=== PATIENT | male | born 2000 | race Caucasian/White ===

== ENCOUNTER 2024-01-07 01:11 | Emergency (ER) | payer OTHER, SELFPAY ==
[2024-01-07 01:13] VITALS: BP 155/96
[2024-01-07 01:28] VITALS: BMI 29.7
--- NOTE | 2024-01-07 02:06 | ED.GENMED ---
History of Present Illness
General
Chief Complaint: Anal/Rectal Problem
Source: patient and family (Mother who is present at the bedside)
Exam Limitations: none
Time Seen by Provider: 01/07/24 01:33
History of Present Illness
History of Present Illness:
23-year-old male presents with pain from a pilonidal cyst. Patient just returned from a 3-hour flight and was uncomfortable during the trip. He has had this cyst for years and has had it drained once. He is insulin-dependent diabetic. States
that his blood sugars have been good. Denies fever, chills, nausea or vomiting.
Past History
Past History
ED Past Medical History: IDDM and Other (Pilonidal cyst)
Social History
Tobacco: Non-smoker
Alcohol: None
Drug: None
Personal: Single
Review of Systems
Review of Systems
Allergies reviewed?: Yes
Other source history: family
All Other Systems: ROS reviewed and negative except as documented in HPI and ROS
Constitutional: Denies fever
EENT: Reports no symptoms
Respiratory: Reports no symptoms
Cardiac: Reports no symptoms
ABD/GI: Reports no symptoms
: Reports no symptoms
Musculoskeletal: Reports no symptoms
Skin: Reports other (Pilonidal cyst Left buttocks)
Neurological: Reports no symptoms
Endocrine: Reports no symptoms
Hematologic/Lymphatic: Reports no symptoms
Psychiatric: Reports anxiety
Phy Exam
General Physical Exam
General Presentation: well appearing and moderate distress
General age: appears stated age
General Skin: warm and dry
General Habitus: normal
General Mental: alert
General Hydration: appears well hydrated
ENT Exam
ENT Exam: EOMI, pharynx normal, neck supple and normocephalic
Eye Exam
Eye Exam: PERRL, cornea clear and conjunctiva normal
Cardiovascular Exam
Cardiovascular Exam: regular rate/rhythm, no edema, no murmur and normal peripheral pulses
Pulmonary Exam
Pulmonary Exam: lungs clear, no respiratory distress, no rales, no crackles, no rhonchi, no stridor, no wheezing and no cough
Gastrointestinal Exam
Gastrointestinal Exam: normal bowel sounds, non tender, soft, no organomegaly, no pulsatile mass and non distended
Neurological Exam
Neurological Exam: alert, oriented x3, no motor deficits and speech normal
Musculoskeletal Exam
Musculoskeletal Exam: full ROM and no edema
Skin Exam
Skin Exam: normal color, warm/dry, no rash, no petechia and other (Pilonidal cyst on the left buttock. No evidence of erythema Or cellulitis)
Psychiatric Exam
Psychiatric Exam: normal mood/affect
Course
Orders/Labs/Results
Orders:
Orders
01/07/24 02:06
HYDROmorphone [Dilaudid] 1 mg IV NOW STA
Ondansetron Injectable [Zofran] 4 mg IV NOW STA
01/07/24 03:46
HYDROmorphone [Dilaudid] 0.5 mg .ROUTE .STK-MED ONE
HYDROmorphone [Dilaudid] 0.5 mg .ROUTE .STK-MED ONE
01/07/24 03:49
HYDROmorphone [Dilaudid] 0.5 mg IV NOW STA
01/07/24 03:54
Clindamycin HCl [Cleocin] 450 mg PO NOW STA
Vital Signs
Initial and Last Documented VS:
Initial Vital Signs
Temp Pulse Resp BP Pulse Ox
98.2 F 70 18 155/96 98
01/07/24 01:13 01/07/24 01:13 01/07/24 01:13 01/07/24 01:13 01/07/24 01:13
Last Documented Vital Signs
Temp Pulse Resp BP Pulse Ox
98.2 F 98 20 130/72 98
01/07/24 01:13 01/07/24 05:25 01/07/24 05:25 01/07/24 04:11 01/07/24 05:48
Procedures
Incision/Drainage/Joint Aspiration
Buttock:
Anethesia: 1% Lidocaine and 1% Lidocaine with Epi
Preparation: cleaned with Hibiclens
Type of procedure: incise, drain and aspiration
Nature of site: abscess
Description of abscess: less than 3cm
Loculations broken up: Yes
How much fluid was obtained?: scant amount
Fluid description: purulent, blood tinged and bloody
Treatment: left open for drainage
*Critical Care Note
Total Time (30-74mins, 75-104mins- exclusive of procedures): Not Applicable
Update Note
Update Note:
01/07/2024 0206 AM: 1% lidocaine with epinephrine injected around the cyst. Patient was in extreme pain. Pain medication ordered
01/07/2024 0246 AM: Back in to see patient. He states that the numbing medicine is working.
01/07/2024 0357 AM: Procedure note: I&D of pilonidal cyst. Verbal consent given by patient with mom present in the room. Appropriate procedures to clean the wound were taken. 1% lidocaine with epinephrine was injected into the wound. 5 cc. When
appropriate analgesia and anesthesia was established, a #11 blade was used to make a small incision approximate 1 cm in length. The wound was then probed with forceps. Cotton tip applicator was also used. No purulent discharge was found.
Ultrasound was used and a small collection of fluid was located right under the incision. Using ultrasound guidance, a scant amount of fluid was expressed. Needle aspiration was attempted with no further success. Patient tolerated procedure well.
No immediate adverse effects.
01/07/2024 0517 AM: Patient resting comfortably. Minimal acute distress at this time. Discussed return to ER instructions with patient and mom. Patient will follow-up with general surgery. Will take antibiotics and pain medicine as needed. Will
continue to closely monitor blood sugar.
ED Attending Note
-
Portions of this chart may have been created with voice recognition software.� Occasional wrong word or��sound alike� substitutions may have occurred due to the inherent limitations of voice recognition software.
Discharge Plan
Departure
Patient Disposition: Home (Routine Discharge)
Date of Disposition: 01/07/24
Time of Disposition: 05:17
Patient with high blood pressure during this ER visit?: Yes
Discharge Problem:
Pilonidal cyst
Instructions: Anal Abscess and Fistula, Adult (DC), How to Do a Sitz Bath, BLOOD PRESSURE
Prescriptions:
New
oxycodone-acetaminophen [Percocet] 5-325 mg tablet
1 tab PO Q6HPRN PRN (Reason: pain) Qty: 10 0RF
clindamycin HCl 150 mg capsule
450 mg PO QID 10 Days Qty: 120 0RF
No Action
insulin aspart U-100 [Novolog U-100 Insulin aspart] 1,000 UNITS/10 ML solution
1.2 units SC MUST ENTER DOSE MDD insulin pump
Patient Comments:
insulin pump
Referrals:
Luis Vieira MD [Family Provider] -
Murtaza Smith MD [Active] - Next open appointment
Activity Restrictions/Additional Instructions:
Your prescriptions were sent electronically to the pharmacy that you specified.
It was a pleasure meeting you and taking part in your care. We hope for your continued healing and wellness.
Please read discharge instructions in their entirety. However, they are for general education and may not describe your exact diagnosis at discharge. Information on your ER visit and medical conditions were discussed with you along with appropriate
follow up information...
If indicated, please take your medications as instructed and indicated on discharge paperwork.
Please schedule a follow up appointment as directed. Call to schedule an appointment
Please return to the emergency department with ANY change in, persisting, or worsening of symptoms. If any of your symptoms do not improve, or persist, or become more severe within 6-12 hours, please return to the emergency department for further
care.
Please return to the emergency department if you develop a headache, neck pain/stiffness, fever greater than 100.4F, chest pain, shortness of breath, persistent nausea, vomiting, slurred speech, difficulty walking, numbness/tingling, weakness, signs
of infection or any other symptoms that are worrisome to you.
If you have any questions or concerns please do not hesitate to call the Hospital at or E-mail me directly at [email or web address]
Interventions
Interventions:
*Risk Screen - Suicide Last Done: 01/07/24 01:13
*General Assessment Last Done: 01/07/24 01:30
*Neglect/Abuse Screening Last Done: 01/07/24 01:13
ED- Fall Risk Assessment Last Done: 01/07/24 01:30
*ED COVID-19 Vaccine History Last Done: 01/07/24 01:30
*Nursing Disposition Last Done: 01/07/24 05:48
KK-Lmcxmw-Sttbnjjzhr Assessment Last Done: 01/07/24 01:30
ED-Skin Assessment Last Done: 01/07/24 01:30
Discharge Date and Time
Discharge Date/Time: 01/07/24 05:49
Print Language: IVORIAN
[2024-01-07] MEDS: ZOFRAN 4 MG IV (02:18)
[2024-01-07] MEDS: DILAUDID 1 MG IV (02:18)
[2024-01-07 02:19] VITALS: BP 143/71
[2024-01-07 03:48] VITALS: BP 159/88
[2024-01-07] MEDS: DILAUDID 0.5 MG IV (03:49)
[2024-01-07] MEDS: CLEOCIN 450 MG PO (04:05)
[2024-01-07 04:11] VITALS: BP 130/72
== END 2024-01-07 05:49 | disposition home or self-care (01) ==
LOC: EMR 01:11
PROVIDERS: EMERGENCY PHYSICIAN Student in an Organized Health Care Education/Training Program; FAMILY PHYSICIAN Family Medicine
DX: L05.91 Pilonidal cyst without abscess (principal)
CPT/HCPCS: 99283; 10080; 96374; 96375